=== PATIENT | male | born 1980 | race Caucasian/White ===

== ENCOUNTER → 2020-12-14 07:13 | Outpatient (CLI) | payer OTHER, SELFPAY ==
[2020-12-14 16:22] LABS: SARS-CoV-2 RNA PCR Negative
== END ==
PROVIDERS: PCP Physician Assistant; Visit Provider Physician Assistant
DX: Z20.822 Contact with and (suspected) exposure to COVID-19 (principal)
CPT/HCPCS: C9803; U0003; U0005

== ENCOUNTER → 2021-09-20 03:14 | Outpatient (CLI) | payer OTHER, SELFPAY ==
[2021-09-21 02:22] LABS: SARS-CoV-2 RNA PCR Positive
== END ==
PROVIDERS: PCP Physician Assistant; Visit Provider Physician Assistant
DX: U07.1 COVID-19 (principal)
CPT/HCPCS: C9803; U0003; U0005